=== PATIENT | male | born 2000 | race Caucasian/White ===

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

== ENCOUNTER → 2020-03-28 | Outpatient (CLI) | payer OTHER, SELFPAY ==
[2020-02-06 15:10] VITALS: BMI 19.0
[2020-03-28 12:19] LABS: AST(SGOT) 17 U/L (15-37); Alanine Aminotransfer ALT/SGPT 23 U/L (16-61); Cholesterol 128 mg/dL (200); High Density Lipoprotein 61 mg/dL; Triglycerides 47 mg/dL; Very Low Density Lipoprotein 9 mg/dL (5-40)
== END | disposition home or self-care (01) ==
LOC: LAB 11:21
PROVIDERS: PCP Pediatrics; Referring Provider Dermatology; Visit Provider Dermatology
DX: Z79.899 Other long term (current) drug therapy (principal); L70.0 Acne vulgaris; L23.3 Allergic contact dermatitis due to drugs in contact with skin
CPT/HCPCS: 36415; 80061; 84450; 84460

== ENCOUNTER → 2025-09-14 | Outpatient (CLI) | payer OTHER, SELFPAY ==
--- NOTE | 2025-09-14 14:17 | RAD_ITS ---
PROCEDURE: HIP, UNI W/ PELVIS 2-3 VIEWS 09/14/2025 REASON FOR EXAM: PAIN TECHNIQUE: Procedure Code: [facility] Modality: DX Procedure: HIP, UNI W/ PELVIS 2-3 VIEWS Laterality: Left COMPARISON: None provided. RAD/HIP, UNI W/ Pelvis 2-3 Views IMPRESSION: Sacroiliac joints appear within normal range. The hip joints are unremarkable appearance, with the evidence of joint space na rrowing. No evidence of femoral head osteonecrosis. No acute fracture or dislocation is seen. Reading Location: [id number]
== END | disposition home or self-care (01) ==
LOC: MTRAD 14:17
PROVIDERS: PCP Physician Assistant; Referring Provider Orthopaedic Surgery Sports Medicine; Visit Provider Orthopaedic Surgery Sports Medicine
DX: M25.552 Pain in left hip (principal)
CPT/HCPCS: 73502